=== PATIENT | male | born 1965 | race Caucasian/White ===

== ENCOUNTER 2021-01-11 19:56 | Inpatient (IN) | payer OTHER ==
[2021-01-11 22:18] LABS: #Monocytes 0.4 10x3/uL (0.0-1.1); #Neutrophils 2.6 10x3/uL (1.5-8.4); %Basophils 0.5 % (0.0-2.0); %Eosinophils 0.2 % (0.0-6.0); %Lymphocytes 24.7 % (18.0-47.0); %Monocytes 10.4 % (0.0-10.0); Hemoglobin 14.4 g/dL (13.5-17.5); Mean Corpuscular HGB CONC 31.5 g/dL (32.0-36.0); Mean Corpuscular Hemoglobin 25.9 pg (27.0-33.0); Mean Corpuscular Volume 82.2 fl (81.2-95.1); Mean Platelet Volume 10.5 fl (7.4-10.4); Platelet Count 189 10x3/uL (150-450); RBC Distribution Width 14.9 % (11.5-14.5); Red Blood Cell (RBC) Count 5.56 10x6/uL (4.32-5.72); White Blood Cell (WBC) Count 4.1 10x3/uL (3.5-10.5)
[2021-01-11 22:35] LABS: ALT (SGPT) 44 U/L (8-55); AST (SGOT) 31 U/L (5-34); Albumin 4.4 g/dL (3.5-5.0); Alkaline Phosphatase 50 U/L (40-110); Anion Gap 16 mmol/L (10-20); BUN (Urea Nitrogen) 7 mg/dL (8.4-25.7); Bilirubin, Total 0.7 mg/dL (0.2-1.2); Calc. Creatinine Clearance 0 mL/min (70-130); Calcium 9.4 mg/dL (7.8-10.44); Carbon Dioxide 27 mmol/L (22-29); Chloride 100 mmol/L (98-107); Globulin 3.2 g/dL (2.4-3.5); Glucose 111 mg/dL (70-105); Potassium 4.2 mmol/L (3.5-5.1); Protein, Total 7.6 g/dL (6.0-8.3); Sodium 139 mmol/L (136-145)
[2021-01-11] MEDS ORDERED: Ketorolac Tromethamine 30 MG/ML VIAL ONE (23:15)
[2021-01-11] MEDS ORDERED: Dexamethasone 10 MG/ML VIAL ONE (23:15)
[2021-01-12] MEDS ORDERED: Ondansetron PF 4 MG/2 ML Vial IVP PRN (02:21)
[2021-01-12] MEDS ORDERED: Calcium Carbonate 500 MG ChewTAB PO PRN (02:21)
[2021-01-12] MEDS ORDERED: HYDROcodone/Acetaminophen 5/325 mg Tablet PO PRN ×2 (02:21)
[2021-01-12] MEDS ORDERED: Ventolin HFA Inhaler 60 PUFF INHALER INH PRN (02:24)
[2021-01-12] MEDS ORDERED: Lactated Ringer's 1,000 ML IV SCH (02:45)
[2021-01-12 03:28] LABS: #Monocytes 0.2 10x3/uL (0.0-1.1); #Neutrophils 2.9 10x3/uL (1.5-8.4); %Monocytes 5.4 % (0.0-10.0); %Neutrophils 79.6 % (40.0-75.0); Hemoglobin 13.7 g/dL (13.5-17.5); Mean Corpuscular HGB CONC 32.2 g/dL (32.0-36.0); Mean Corpuscular Hemoglobin 26.1 pg (27.0-33.0); Mean Platelet Volume 9.8 fl (7.4-10.4); Platelet Count 172 10x3/uL (150-450); RBC Distribution Width 14.9 % (11.5-14.5); Red Blood Cell (RBC) Count 5.25 10x6/uL (4.32-5.72); White Blood Cell (WBC) Count 3.7 10x3/uL (3.5-10.5)
[2021-01-12 03:43] LABS: ALT (SGPT) 39 U/L (8-55); AST (SGOT) 27 U/L (5-34); Alkaline Phosphatase 49 U/L (40-110); Anion Gap 15 mmol/L (10-20); BUN (Urea Nitrogen) 8 mg/dL (8.4-25.7); Bilirubin, Total 0.6 mg/dL (0.2-1.2); CRP (Inflammatory) 8.79 mg/dL (= or < 0.5); Calc. Creatinine Clearance 0 mL/min (70-130); Calcium 9.1 mg/dL (7.8-10.44); Carbon Dioxide 22 mmol/L (22-29); Chloride 105 mmol/L (98-107); Globulin 3.3 g/dL (2.4-3.5); Glucose 150 mg/dL (70-105); Protein, Total 7.3 g/dL (6.0-8.3); Sodium 138 mmol/L (136-145)
[2021-01-12 08:02] VITALS: BMI 31.1
[2021-01-12] MEDS: Enoxaparin Sodium 40 MG/0.4 ML SYRINGE SC SCH (08:23)
[2021-01-12] MEDS: Ascorbic Acid 500 mg Chewable Tablet PO SCH (08:23)
[2021-01-12] MEDS: Dexamethasone 4 mg/ml Vial SLOW IVP SCH (08:23)
[2021-01-12] MEDS: Aspirin 81 mg Enteric Coated Tablet PO SCH (08:24)
[2021-01-12] MEDS: Zinc Gluconate 50 MG TAB PO SCH (08:24)
[2021-01-12] MEDS: Ezetimibe 10 MG TAB PO SCH (08:24)
[2021-01-12] MEDS: Cholecalciferol 1,000 UNITS (25 MCG) TAB PO SCH (08:24)
[2021-01-12] MEDS: Guaifenesin DM 100-10/5 ML UDCUP PO PRN (12:03)
[2021-01-12] MEDS: Atorvastatin Calcium 40 MG TAB PO SCH (20:02)
[2021-01-13 05:57] LABS: Anion Gap 15 mmol/L (10-20); BUN (Urea Nitrogen) 9 mg/dL (8.4-25.7); Calc. Creatinine Clearance 161 mL/min (70-130); Calcium 9.2 mg/dL (7.8-10.44); Carbon Dioxide 25 mmol/L (22-29); Chloride 106 mmol/L (98-107); Glucose 135 mg/dL (70-105); Potassium 3.7 mmol/L (3.5-5.1); Sodium 142 mmol/L (136-145)
[2021-01-13 06:00] LABS: #Monocytes 0.9 10x3/uL (0.0-1.1); #Neutrophils 5.6 10x3/uL (1.5-8.4); %Basophils 0.1 % (0.0-2.0); %Monocytes 12.2 % (0.0-10.0); %Neutrophils 72.1 % (40.0-75.0); Hemoglobin 13.6 g/dL (13.5-17.5); Mean Corpuscular HGB CONC 31.8 g/dL (32.0-36.0); Mean Corpuscular Hemoglobin 25.9 pg (27.0-33.0); Mean Corpuscular Volume 81.4 fl (81.2-95.1); Mean Platelet Volume 10.1 fl (7.4-10.4); Platelet Count 242 10x3/uL (150-450); RBC Distribution Width 14.9 % (11.5-14.5); Red Blood Cell (RBC) Count 5.26 10x6/uL (4.32-5.72); White Blood Cell (WBC) Count 7.7 10x3/uL (3.5-10.5)
[2021-01-13] MEDS: Ezetimibe 10 MG TAB PO SCH (07:57)
[2021-01-13] MEDS: Aspirin 81 mg Enteric Coated Tablet PO SCH (07:57)
[2021-01-13] MEDS: Dexamethasone 4 mg/ml Vial SLOW IVP SCH (07:57)
[2021-01-13] MEDS: Enoxaparin Sodium 40 MG/0.4 ML SYRINGE SC SCH (07:58)
[2021-01-13] MEDS: Ascorbic Acid 500 mg Chewable Tablet PO SCH (07:58)
[2021-01-13] MEDS: Cholecalciferol 1,000 UNITS (25 MCG) TAB PO SCH (07:58)
[2021-01-13] MEDS: Zinc Gluconate 50 MG TAB PO SCH (07:58)
[2021-01-13] MEDS: Zolpidem Tartrate 5 MG TAB PO PRN (20:27)
[2021-01-13] MEDS: Guaifenesin DM 100-10/5 ML UDCUP PO PRN (20:27)
[2021-01-13] MEDS: Atorvastatin Calcium 40 MG TAB PO SCH (20:27)
[2021-01-13] MEDS: Acetaminophen 325 MG TAB PO PRN (23:35)
[2021-01-14] MEDS: Aspirin 81 mg Enteric Coated Tablet PO SCH (08:16)
[2021-01-14] MEDS: Ezetimibe 10 MG TAB PO SCH (08:16)
[2021-01-14] MEDS: Ascorbic Acid 500 mg Chewable Tablet PO SCH (08:16)
[2021-01-14] MEDS: Enoxaparin Sodium 40 MG/0.4 ML SYRINGE SC SCH (08:16)
[2021-01-14] MEDS: Cholecalciferol 1,000 UNITS (25 MCG) TAB PO SCH (08:16)
[2021-01-14] MEDS: Dexamethasone 4 mg/ml Vial SLOW IVP SCH (08:16)
[2021-01-14] MEDS: Zinc Gluconate 50 MG TAB PO SCH (08:16)
[2021-01-14] MEDS: Guaifenesin DM 100-10/5 ML UDCUP PO PRN (17:35)
[2021-01-14] MEDS: Atorvastatin Calcium 40 MG TAB PO SCH (20:53)
[2021-01-14] MEDS: Zolpidem Tartrate 5 MG TAB PO PRN (20:53)
[2021-01-14] MEDS: Acetaminophen 325 MG TAB PO PRN (20:53)
[2021-01-14] MEDS: Dexamethasone 10 MG/ML VIAL SLOW IVP SCH (20:54)
[2021-01-15] MEDS: Guaifenesin DM 100-10/5 ML UDCUP PO PRN ×3 (05:12→20:32)
[2021-01-15 05:54] LABS: #Monocytes 0.6 10x3/uL (0.0-1.1); #Neutrophils 7.8 10x3/uL (1.5-8.4); %Basophils 0.1 % (0.0-2.0); %Lymphocytes 7.7 % (18.0-47.0); %Monocytes 6.9 % (0.0-10.0); %Neutrophils 84.8 % (40.0-75.0); Hemoglobin 14.4 g/dL (13.5-17.5); Mean Corpuscular HGB CONC 32.8 g/dL (32.0-36.0); Mean Corpuscular Hemoglobin 26.9 pg (27.0-33.0); Mean Corpuscular Volume 82.1 fl (81.2-95.1); Mean Platelet Volume 9.9 fl (7.4-10.4); Platelet Count 277 10x3/uL (150-450); RBC Distribution Width 15.3 % (11.5-14.5); Red Blood Cell (RBC) Count 5.35 10x6/uL (4.32-5.72); White Blood Cell (WBC) Count 9.2 10x3/uL (3.5-10.5)
[2021-01-15 06:03] LABS: Anion Gap 16 mmol/L (10-20); BUN (Urea Nitrogen) 12 mg/dL (8.4-25.7); CRP (Inflammatory) 9.36 mg/dL (= or < 0.5); Calcium 9.7 mg/dL (7.8-10.44); Carbon Dioxide 25 mmol/L (22-29); Chloride 102 mmol/L (98-107); Glucose 169 mg/dL (70-105); Sodium 139 mmol/L (136-145)
[2021-01-15 06:44] LABS: Calc. Creatinine Clearance 155 mL/min (70-130)
[2021-01-15] MEDS: Dexamethasone 10 MG/ML VIAL SLOW IVP SCH (08:14)
[2021-01-15] MEDS: Zinc Gluconate 50 MG TAB PO SCH (08:15)
[2021-01-15] MEDS: Ascorbic Acid 500 mg Chewable Tablet PO SCH (08:15)
[2021-01-15] MEDS: Cholecalciferol 1,000 UNITS (25 MCG) TAB PO SCH (08:15)
[2021-01-15] MEDS: Aspirin 81 mg Enteric Coated Tablet PO SCH (08:15)
[2021-01-15] MEDS: Enoxaparin Sodium 40 MG/0.4 ML SYRINGE SC SCH (08:15)
[2021-01-15] MEDS: Ezetimibe 10 MG TAB PO SCH (08:15)
[2021-01-15] MEDS: Acetaminophen 325 MG TAB PO PRN ×2 (16:51→20:32)
[2021-01-15] MEDS: Atorvastatin Calcium 40 MG TAB PO SCH (20:28)
[2021-01-15] MEDS: Zolpidem Tartrate 5 MG TAB PO PRN (20:32)
[2021-01-15] MEDS ORDERED: Dexamethasone 20 MG/5 ML VIAL SLOW IVP SCH (21:00)
[2021-01-16 03:17] LABS: #Monocytes 0.9 10x3/uL (0.0-1.1); %Basophils 0.3 % (0.0-2.0); %Lymphocytes 10.9 % (18.0-47.0); %Monocytes 9.6 % (0.0-10.0); %Neutrophils 77.4 % (40.0-75.0); Hemoglobin 13.6 g/dL (13.5-17.5); Mean Corpuscular HGB CONC 33.3 g/dL (32.0-36.0); Mean Corpuscular Hemoglobin 27.8 pg (27.0-33.0); Mean Corpuscular Volume 83.4 fl (81.2-95.1); Mean Platelet Volume 9.8 fl (7.4-10.4); Platelet Count 302 10x3/uL (150-450); RBC Distribution Width 17.1 % (11.5-14.5); Red Blood Cell (RBC) Count 4.89 10x6/uL (4.32-5.72); White Blood Cell (WBC) Count 9.1 10x3/uL (3.5-10.5)
[2021-01-16 03:34] LABS: Anion Gap 14 mmol/L (10-20); BUN (Urea Nitrogen) 13 mg/dL (8.4-25.7); Calc. Creatinine Clearance 163 mL/min (70-130); Calcium 9.6 mg/dL (7.8-10.44); Carbon Dioxide 25 mmol/L (22-29); Chloride 104 mmol/L (98-107); Glucose 141 mg/dL (70-105); Potassium 4.4 mmol/L (3.5-5.1); Sodium 139 mmol/L (136-145)
[2021-01-16] MEDS: Acetaminophen 325 MG TAB PO PRN (03:35)
[2021-01-16] MEDS: Guaifenesin DM 100-10/5 ML UDCUP PO PRN ×3 (03:45→16:15)
[2021-01-16] MEDS: Enoxaparin Sodium 40 MG/0.4 ML SYRINGE SC SCH (07:51)
[2021-01-16] MEDS: Cholecalciferol 1,000 UNITS (25 MCG) TAB PO SCH (07:51)
[2021-01-16] MEDS: Ascorbic Acid 500 mg Chewable Tablet PO SCH (07:51)
[2021-01-16] MEDS: Zinc Gluconate 50 MG TAB PO SCH (07:52)
[2021-01-16] MEDS: Ezetimibe 10 MG TAB PO SCH (07:52)
[2021-01-16] MEDS: Aspirin 81 mg Enteric Coated Tablet PO SCH (07:52)
[2021-01-16] MEDS ORDERED: Dexamethasone 20 MG/5 ML VIAL SLOW IVP SCH (09:00)
[2021-01-16 13:36] VITALS: BP 123/77; TEMP 98.3
== END 2021-01-16 17:52 | disposition home or self-care (01) | DRG 177 ==
LOC: CSHERS 19:56 → CSHERHOLD 01-12 00:23 → INTOOBSV 01-12 00:23 → OBSVTOIN 01-12 00:24 → CSHTELE 01-12 07:23
PROVIDERS: ADMIT Student in an Organized Health Care Education/Training Program; ATTEND Family Medicine
PROC: 8E0ZXY6 Isolation (ICD-10-PCS; principal; 2021-01-12)
DX: U07.1 COVID-19 (principal); J12.82 Pneumonia due to coronavirus disease 2019; J96.01 Acute respiratory failure with hypoxia; K21.9 Gastro-esophageal reflux disease without esophagitis; E78.5 Hyperlipidemia, unspecified; I10 Essential (primary) hypertension; F17.220 Nicotine dependence, chewing tobacco, uncomplicated
CPT/HCPCS: 36415; 71045; 80048; 80053; 83605; 84484; 85025; 85379; 86140; 93005; 94760; 96374; 96375; J1100; J1650; J1885; J7120